=== PATIENT | male | born 1955 | race African-American/Black ===

== ENCOUNTER 2018-01-01 21:46 | Emergency (ER) | payer BC, OTHER ==
[~2018-01-01] VITALS: Ht 175.3 cm; Wt 68.0 kg
[2018-01-01 21:56] VITALS: BP 142/96
[2018-01-01 22:55] LABS: Basophils # (auto) 0.1 uL; Eosinophils # (auto) 0.3 uL; Eosinophils % (auto) 5.8 % (0.0-7.0); Hemoglobin 16.4 g/dL (13.5-17.5); Lymphocytes # (auto) 1.7 uL; Monocytes # (auto) 0.5 uL; Red Cell Distribution Width 14.4 % (11.8-14.3)
[2018-01-01 22:57] LABS: Hematocrit 48.1 % (41.0-53.0); Mean Corpuscular Hemoglobin 27.5 pg (28.0-32.0); Mean Corpuscular Volume 80.9 fL (80.0-100.0); Monocytes % (auto) 9.3 % (0.0-12.0); Neutrophils % (auto) 53.9 % (37.0-80.0); Nucleated Red Blood Cells % 0.3 %; Platelet Count (auto) 264 10^3/uL (140-450); Red Blood Cells 5.95 10^6/uL (4.5-5.90); White Blood Cell 5.6 10^3/uL (4.4-10.8)
[2018-01-01 23:09] LABS: Albumin 4.1 g/dL (3.4-5.0); Calcium 9.6 mg/dL (8.5-10.1); Potassium 3.3 mmol/L (3.5-5.1)
[2018-01-01 23:31] LABS: BUN/Creatinine Ratio 8.8; Total Protein 8.5 g/dL (6.4-8.2)
== END 2018-01-02 01:22 | disposition left against medical advice (07) ==
LOC: ER 21:46
DX: R13.10 Dysphagia, unspecified (principal); Z53.21 Procedure and treatment not carried out due to patient leaving prior to being seen by health care provider
CPT/HCPCS: 36415; 80053; 85025

== ENCOUNTER 2019-10-13 11:42 | Emergency (ER) | payer OTHER ==
[~2019-10-13] VITALS: Ht 175.3 cm; Wt 74.8 kg
[2019-10-13] MEDS ORDERED: SODIUM CHLORIDE 0.9% 1,000 ML IVB ONE (12:06)
[2019-10-13] MEDS ORDERED: ONDANSETRON HCL 4 MG/2 ML VIAL IV ONE (12:30)
[2019-10-13 13:12] LABS: Basophils # (auto) 0.1 10 ^3/uL (0-0.2); Eosinophils # (auto) 0.3 10 ^3/uL (0-0.8); Lymphocytes # (auto) 1.3 10 ^3/uL (0.4-5.4); Monocytes # (auto) 0.4 10 ^3/uL (0-1.3); Neutrophils # (auto) 3.4 10 ^3/uL (1.6-8.6); Neutrophils % (auto) 61.7 % (37.0-80.0); Nucleated Red Blood Cells % 0.1 %
[2019-10-13 13:13] LABS: Basophils % (auto) 1.1 % (0.0-2.0); Eosinophils % (auto) 5.3 % (0.0-7.0); Hematocrit 42.1 % (41.0-53.0); Hemoglobin 13.7 g/dL (13.5-17.5); Lymphocytes % (auto) 23.7 % (10.0-50.0); Mean Corpuscular Hemoglobin 26.6 pg (28.0-32.0); Mean Corpuscular Hgb Conc. 32.5 g/dL (32.0-36.0); Mean Corpuscular Volume 81.8 fL (80.0-100.0); Monocytes % (auto) 8.2 % (0.0-12.0); Platelet Count (auto) 224 10^3/uL (140-450); Red Blood Cells 5.15 10^6/uL (4.5-5.90); Red Cell Distribution Width 14.6 % (11.8-14.3); White Blood Cell 5.4 10^3/uL (4.4-10.8)
[2019-10-13 13:27] LABS: INR 1.09 (0.9-1.15); Partial Thromboplastin Time 27.1 sec (23.0-31.2)
[2019-10-13 13:28] LABS: Albumin 3.1 g/dL (3.4-5.0); BUN/Creatinine Ratio 9.5
[2019-10-13 13:32] LABS: Bilirubin, Total 0.7 mg/dL (0.2-1.0); Total Protein 7.2 g/dL (6.4-8.2)
[2019-10-13 13:46] LABS: Potassium 2.6 mmol/L (3.5-5.1)
[2019-10-13] MEDS ORDERED: POTASSIUM CHL 20 Meq TABLET PO ONE ×2 (14:15)
[2019-10-13 16:00] VITALS: BP 143/84
[2019-10-13 16:07] LABS: Urine Bacteria FEW /hpf (None Seen); Urine Blood Negative /uL (Negative); Urine Mucus FEW (None Seen); Urine Specific Gravity 1.007 (1.001-1.035); Urine WBC 1 /hpf (0 - 3)
== END 2019-10-13 16:47 | disposition still patient (30) ==
LOC: ER 11:42 → EDBD 11:42 → ER 16:47
DX: N28.1 Cyst of kidney, acquired (principal); E87.6 Hypokalemia; I10 Essential (primary) hypertension; E78.5 Hyperlipidemia, unspecified; K21.9 Gastro-esophageal reflux disease without esophagitis; J44.9 Chronic obstructive pulmonary disease, unspecified
CPT/HCPCS: 36415; 71045; 74176; 80053; 81001; 83690; 83735; 85025; 85610; 85730; 96361; 96374; 99285; J2405